=== PATIENT | female | born 1965 | race Hispanic/Latino ===

== ENCOUNTER 2017-01-02 20:33 | Emergency (ER) | payer MEDICAID ==
[2017-01-02 20:33] VITALS: BMI 40.1
[2017-01-02 20:53] VITALS: BP 158/93
--- NOTE | 2017-01-02 21:41 | ED PDOC ---
Arrival/HPI <Eros Solorio - Last Filed: 01/03/17 01:03> - General Historian: Patient <AdelasaraSarah - Last Filed: 01/03/17 04:08> - General Chief Complaint: Lower Extremity Problem/Injury Time Seen by Provider: 01/02/17 20:59 - History of Present Illness Narrative History of Present Illness (Text): 01/02/17 21:47 Patient is a 51 y/o with pmh of DVT, HTN, DM, HLD, diabetic neuropathy, cocaine abuse, medication non compliance sent from PMD's office secondary to lower extremities edema. Patient states she has the edema for 3 days, with pain when she ambulates and erythema. Patient denies sob, cp, denies fever, chills, n.v.d. Patient reports she doesn't take nay medications at home, only takes it when she's in the hospital. Patient uses crack cocaine and last used it today. patient fell about a month ago, and fractured her wrist, is been following up with an orthopedic at [facility]. + chronic cough. Denies traveling history. Reports she's mostly active, and doesn't seat around. PMD: Gustavo Chinchilla 01/02/17 21:49 01/02/17 21:54 01/02/17 22:24 (Sarah Bains) Past Medical History - Provider Review Nursing Documentation Reviewed: Yes <Eros Solorio - Last Filed: 01/03/17 01:03> - Provider Review Nursing Documentation Reviewed: Yes - Travel History Have you recently traveled outside [place] w/in the past 3 mons?: No - Infectious Disease Hx of Infectious Diseases: None - Tetanus Immunization Tetanus Immunization: Unknown - Reproductive Menopause: Yes - Cardiac Hx Hypertension: Yes - Pulmonary Hx Asthma: Yes Hx Chronic Obstructive Pulmonary Disease (COPD): Yes - Neurological Hx Neurological Disorder: No - HEENT Hx HEENT Disorder: Yes Hx Deafness: Yes - Renal Hx Renal Disorder: No - Endocrine/Metabolic Hx Endocrine Disorders: Yes Hx Diabetes Mellitus Type 2: Yes - Hematological/Oncological Hx Blood Disorders: No - Integumentary Hx Dermatological Disorder: No - Musculoskeletal/Rheumatological Hx Arthritis: Yes - Gastrointestinal Hx Diverticulitis: Yes - Genitourinary/Gynecological Hx Genitourinary Disorders: Yes Hx Urinary Tract Infection: Yes Other/Comment: PROLASE OF UTERUS - Psychiatric Hx Anxiety: Yes Hx Bipolar Disorder: Yes Hx Substance Use: Yes - Surgical History Hx Tonsillectomy: Yes - Anesthesia Hx Anesthesia: Yes - Suicidal Assessment Feels Threatened In Home Enviroment: No <Sarah Bains - Last Filed: 01/03/17 04:08> Family/Social History - Physician Review Nursing Documentation Reviewed: Yes Family/Social History: No Known Family HX <Eros Solorio - Last Filed: 01/03/17 01:03> Smoking Status: Light Smoker < 10 Cigarettes Daily Hx Alcohol Use: No Hx Substance Use: Yes Substance used: Crack <Sarah Bains - Last Filed: 01/03/17 04:08> Allergies/Home Meds <Eros Solorio - Last Filed: 01/03/17 01:03> <Sarah Bains - Last Filed: 01/03/17 04:08> Allergies/Adverse Reactions: Allergies Benzodiazepines Allergy (Severe, Verified 01/02/17 20:47) RASH diphenhydramine HCl [From Benadryl] Allergy (Severe, Verified 01/02/17 20:47) RASH ciprofloxacin [From Cipro] Allergy (Verified 01/02/17 20:47) RASH ciprofloxacin HCl [From Cipro] Allergy (Verified 01/02/17 20:47) RASH trazadone Allergy (Severe, Uncoded 01/02/17 20:47) ANAPHYLAXIS Review of Systems - Review of Systems Constitutional: Normal Eyes: Normal ENT: Normal Respiratory: Cough Cardiovascular: Normal Gastrointestinal: Normal. absent: Abdominal Pain, Nausea, Vomiting Genitourinary Female: Normal Musculoskeletal: Normal Skin: Rash, Cellulitis (lower extremities. ) Neurological: Normal Endocrine: Normal Hemo/Lymphatic: Normal Psychiatric: Normal <Sarah Bains - Last Filed: 01/03/17 04:08> Physical Exam Temperature: Afebrile Blood Pressure: Hypertensive Pulse: Regular Respiratory Rate: Normal Appearance: Positive for: Non-Toxic, Comfortable, Unkept Pain Distress: None Mental Status: Positive for: Alert and Oriented X 3 - Systems Exam Head: Present: Atraumatic, Normocephalic. No: Tenderness Pupils: Present: PERRL Extroacular Muscles: Present: EOMI Conjunctiva: Present: Normal Mouth: Present: Dry Neck: Present: Normal Range of Motion Respiratory/Chest: Present: Clear to Auscultation. No: Good Air Exchange, Respiratory Distress, Accessory Muscle Use, Wheezes, Decreased Breath Sounds Cardiovascular: Present: Regular Rate and Rhythm, Normal S1, S2. No: Murmurs Abdomen: Present: Normal Bowel Sounds, Other (obese abomen.). No: Tenderness, Distention Upper Extremity: Present: Other (with casting on the right.) Lower Extremity: Present: Edema, CALF TENDERNESS, Tenderness, Swelling, Erythema (Blanching.), Capillary Refill < 2 s, Other (Left LE with +4 pitting edema, Righ LE with +2 LE. Warm to touch. ) Neurological: Present: GCS=15, Speech Normal Skin: Present: Warm, Dry, Rashes, Abrasion Psychiatric: Present: Alert, Oriented x 3, Normal Insight <Sarah Bains - Last Filed: 01/03/17 04:08> Vital Signs Temp Pulse Resp BP Pulse Ox 01/03/17 00:19 97.8 F 76 16 98 01/02/17 20:48 98.3 F 98 H 18 158/93 H 95 Medical Decision Making - Lab Interpretations I have reviewed the lab results: Yes <Eros Solorio - Last Filed: 01/03/17 01:03> Re-evaluation Time: 00:05 Reassessment Condition: Re-examined, Unchanged <Sarah Bains - Last Filed: 01/03/17 04:08> ED Course and Treatment: Pt seen and evaluated with spanish medical interpreter. Pt, whose past medical history includes COPD, diabetes, hypertension, hyperlipidemia, DVT, substance abuse, and medicine non-compliance, presented for bilateral lower extremity edema for 3 days, with associated pain when ambulating and erythema. Patient was seen by her PMD for similar complaint today and advised to come to the Emergency. Aware and agree with HPI, clinical findings, plan, and management. Plan: -- US Duplex Lower Extremities -- Labs, blood culture -- Urinalysis -- Reassess and disposition (Eros Solorio) 01/03/17 00:08 Lower extremities doppler with no DVTs. 01/03/17 00:08 (Sarah Bains) - Lab Interpretations Lab Results: 01/02/17 22:10 01/02/17 22:10 Lab Results 01/02/17 22:10: Sodium 138, Potassium 3.8, Chloride 101, Carbon Dioxide 31, Anion Gap 10, BUN 12, Creatinine 0.7, Est GFR ( Amer) > 60, Est GFR (Non- Af Amer) > 60, Random Glucose 220 H, Calcium 9.3, Total Bilirubin 0.3, AST 18, ALT 36, Alkaline Phosphatase 145 H, Total Protein 7.1, Albumin 3.8, Globulin 3.3 , Albumin/Globulin Ratio 1.2 01/02/17 22:10: Urine Color Yellow, Urine Appearance Sl cloudy, Urine pH 6.0, Ur Specific [place] >= 1.030, Urine Protein 100 H, Urine Glucose (UA) Negative, Urine Ketones Negative, Urine Blood Large H, Urine Nitrate Negative, Urine Bilirubin Negative, Urine Urobilinogen 0.2, Ur Leukocyte Esterase Negative, Urine RBC 1 - 3, Urine WBC 1 - 3, Ur Epithelial Cells 6 - 8, Urine Bacteria Many 01/02/17 22:10: WBC 11.6 H D, RBC 4.48, Hgb 13.9, Hct 41.3, MCV 92.2, MCH 31.0, MCHC 33.7, RDW 13.5, Plt Count 340, MPV 10.1, Gran % 60.3, Lymph % (Auto) 30.7, [place] % (Auto) 6.7 H, Eos % (Auto) 1.9, Baso % (Auto) 0.4, Gran # 6.98 H, Lymph # 3.6 H, [place] # 0.8 H, Eos # 0.2, Baso # 0.05 - RAD Interpretation Radiology Orders: 01/02/17 21:45 DUPLEX LOWER EXTRM VEIN BILAT [US] Stat - Medication Orders Current Medication Orders: Discontinued Medications Acetaminophen (Tylenol 325mg Tab) 650 mg PO STAT STA Stop: 01/02/17 22:35 Last Admin: 01/02/17 22:42 Dose: Not Given Non-Admin Reason: Patient Refused Pregabalin (Lyrica) 100 mg PO BID [facility] Last Admin: 01/03/17 00:43 Dose: 100 mg Trimethoprim/Sulfamethoxazole (Bactrim Ds Tab) 1 tab PO ONCE ONE PRN Reason: Protocol Stop: 01/03/17 00:33 Last Admin: 01/03/17 00:44 Dose: 1 tab Disposition/Present on Arrival <CoccEros bennett - Last Filed: 01/03/17 01:03> - Present on Arrival Any Indicators Present on Arrival: No History of DVT/PE: No History of Uncontrolled Diabetes: Yes Urinary Catheter: No History of Decub. Ulcer: No History Surgical Site Infection Following: None - Disposition Have Diagnosis and Disposition been Completed?: Yes Disposition Time: 00:10 <Sarah Bains - Last Filed: 01/03/17 04:08> - Disposition Diagnosis: Cellulitis of leg, right, Leg edema Disposition: HOME/ ROUTINE Condition: FAIR Discharge Instructions (ExitCare): Cellulitis (ED) Additional Instructions: Please take the antibiotic as prescribed, Take Tylenol as need for pain Follow up with your primary care doctor. Go tot he nearest emergency room if you experience chest pain, sob, fever or chills. Prescriptions: Sulfamethoxazole/Trimethoprim [Bactrim DS 800 mg-160 mg] 1 tab PO BID #14 tab Referrals: [facility] at [facility] – [place] [Outside] - Follow up with primary
[2017-01-02 22:29] LABS: ADD MANUAL DIFF? NO
[2017-01-02 22:44] LABS: ALB/GLOB RATIO 1.2 (1.1-1.8); ALKALINE PHOSPHATASE 145 U/L (38-133); ALT/SGPT 36 U/L (7-56); AST/SGOT 18 U/L (15-39); BILIRUBIN,TOTAL 0.3 mg/dL (0.2-1.3); BLOOD UREA NITROGEN 12 mg/dL (7-21); CALCIUM 9.3 mg/dL (8.4-10.5); CARBON DIOXIDE 31 mmol/L (21-33); CHLORIDE 101 mmol/L (95-110); GFR AFRICAN-AMERICAN > 60; GLUCOSE,RANDOM 220 mg/dL (70-110); POTASSIUM 3.8 mmol/L (3.6-5.0); SODIUM 138 mmol/L (132-148); TOTAL PROTEIN 7.1 g/dL (5.8-8.3)
[2017-01-02 23:04] LABS: URINE BILIRUBIN NEGATIVE (NEGATIVE); URINE BLOOD LARGE (NEGATIVE); URINE GLUCOSE (UA) NEGATIVE (NEGATIVE); URINE KETONE NEGATIVE (NEGATIVE); URINE LEUKOCYTE ESTERASE NEGATIVE Leu/uL (NEGATIVE); URINE PROTEIN 100 mg/dL (<30 mg/dL); URINE UROBILINOGEN 0.2 E.U./dL (<1 E.U./dL)
[2017-01-02 23:05] LABS: BASO # 0.05 K/mm3 (0.0-2.0); BASO % 0.4 % (0.0-3.0); EOS # 0.2 (0.0-0.7); EOS % 1.9 % (1.5-5.0); GRAN # 6.98 (1.4-6.5); GRAN % 60.3 % (50.0-68.0); HEMATOCRIT 41.3 % (36.0-48.0); LYMPH # 3.6 (1.2-3.4); LYMPH % 30.7 % (22.0-35.0); MEAN CELL VOLUME 92.2 fL (80.0-105.0); MEAN CORPUSCULAR HGB CONC 33.7 g/dl (31.0-37.0); MEAN PLATELET VOLUME 10.1 fl (7.0-11.0); MONO # 0.8 (0.1-0.6); MONO % 6.7 % (1.0-6.0); PLATELET COUNT 340 10^3/uL (120.0-450.0); RED CELL DISTRIBUTION WIDTH 13.5 % (11.5-14.5); WHITE BLOOD COUNT 11.6 10^3/ul (4.5-11.0)
[2017-01-02 23:13] LABS: URINE APPEARANCE SL CLOUDY (CLEAR); URINE COLOR YELLOW (YELLOW)
[2017-01-02 23:44] LABS: URINE BACTERIA MANY (NEG)
[2017-01-03 00:20] VITALS: PULSE 76; RESP 16; TEMP 97.8; O2SAT 98
[2017-01-03] MEDS ORDERED: Tmp-Smz 800 mg-160 mg DS Tab PO ONE (00:32)
--- NOTE | 2017-01-03 13:34 | US ---
HISTORY: Leg pain and swelling. Evaluate for DVT PHYSICIAN(S): Darvin Chinchilla MD. TECHNIQUE: Duplex sonography and color-flow Doppler with graded compression were used to evaluate the deep venous systems of both lower extremities. The exam is limited by body habitus and edema. FINDINGS: The visualized deep venous systems of both lower extremities are sonographically normal and compressible. Normal wave forms and augmentation are seen. There is no sonographic evidence for deep venous thrombosis in the visualized segments of both lower extremities. IMPRESSION: No sonographic evidence for deep venous thrombosis in the visualized segments of both lower extremities.
== END 2017-01-03 01:06 | disposition home or self-care (01) ==
LOC: ED 20:33
DX: L03.115 Cellulitis of right lower limb (principal); R60.0 Localized edema

== ENCOUNTER 2017-09-29 13:52 | Emergency (ER) | payer MEDICAID ==
[2017-09-29 13:53] VITALS: BMI 40.1
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
[2017-09-29 14:22] VITALS: RESP 19
[2017-09-29] MEDS ORDERED: Lidocaine 5% Patch TD STA (14:57)
[2017-09-29 15:16] LABS: BASO # 0.05 K/mm3 (0.0-2.0); BASO % 0.4 % (0.0-3.0); EOS # 0.2 (0.0-0.7); EOS % 1.3 % (1.5-5.0); GRAN # 7.48 (1.4-6.5); GRAN % 63.5 % (50.0-68.0); HEMOGLOBIN 16.4 g/dL (12.0-16.0); LYMPH # 3.3 (1.2-3.4); LYMPH % 28.3 % (22.0-35.0); MEAN CELL VOLUME 94.8 fl (80.0-105.0); MEAN CORPUSCULAR HEMOGLOBIN 31.3 pg (25.0-35.0); MEAN PLATELET VOLUME 10.2 fl (7.0-11.0); MONO # 0.8 (0.1-0.6); MONO % 6.5 % (1.0-6.0); RBC 5.24 10^6/uL (3.5-6.1); RED CELL DISTRIBUTION WIDTH 13.9 % (11.5-14.5); WHITE BLOOD COUNT 11.8 10^3/ul (4.5-11.0)
[2017-09-29 15:20] LABS: INR 1.01 (0.93-1.08); PARTIAL THROMBOPLASTIN TIME 36.5 Seconds (25.1-36.5); PROTHROMBIN TIME 11.5 SECONDS (9.4-12.5)
[2017-09-29 15:28] LABS: ALB/GLOB RATIO 1.1 (1.1-1.8); ALBUMIN 4.2 g/dL (3.0-4.8); ALT/SGPT 42 U/L (7-56); AST/SGOT 27 U/L (14-36); BLOOD UREA NITROGEN 10 mg/dL (7-21); CALCIUM 9.2 mg/dL (8.4-10.5); GFR AFRICAN-AMERICAN > 60; GFR NON-AFRICAN AMERICAN > 60
[2017-09-29 16:07] LABS: URINE BILIRUBIN NEGATIVE (NEGATIVE); URINE BLOOD LARGE (NEGATIVE); URINE GLUCOSE (UA) NEGATIVE (NEGATIVE); URINE LEUKOCYTE ESTERASE NEGATIVE Leu/uL (NEGATIVE); URINE PROTEIN TRACE mg/dL (<30 mg/dL); URINE UROBILINOGEN 0.2 E.U./dL (<1 E.U./dL)
[2017-09-29 16:08] LABS: URINE APPEARANCE SL CLOUDY (CLEAR); URINE COLOR YELLOW (YELLOW)
[2017-09-29 16:24] LABS: URINE BACTERIA MOD (NEG); URINE EPITHELIAL CELLS MANY /hpf (0-5)
--- NOTE | 2017-09-29 16:29 | RAD ---
PROCEDURE: Radiographs of the right great toe. TECHNIQUE:: AP radiograph of the right foot, with oblique and lateral view of the right great toe. COMPARISON: None. FINDINGS: BONES: Normal. No fracture. JOINTS: Normal. SOFT TISSUES: Soft tissue swelling medial aspect of the 1st digit with small ulcer. No evidence of radiopaque foreign body. OTHER FINDINGS: None. IMPRESSION: Soft tissue swelling without acute articular or osseous abnormality.
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
[2017-09-29] MEDS ORDERED: cefTRIAXone 1 gm 1 GM/100 ML BAG IVPB STA (16:34)
[2017-09-29] MEDS ORDERED: Potassium Chloride 20 mEq ER Tab PO STA (17:24)
[2017-09-29 17:53] VITALS: BP 160/89; PULSE 78; TEMP 98; O2SAT 98
== END 2017-09-29 17:50 | disposition home or self-care (01) ==
LOC: ED 13:52
DX: M54.9 Dorsalgia, unspecified (principal); S91.301A Unspecified open wound, right foot, initial encounter; W19.XXXA Unspecified fall, initial encounter; I10 Essential (primary) hypertension; E11.9 Type 2 diabetes mellitus without complications; J44.9 Chronic obstructive pulmonary disease, unspecified; F17.210 Nicotine dependence, cigarettes, uncomplicated
CPT/HCPCS: 72110; 73660; 80053; 81001; 85025; 85610; 85730; 87040; 87070; 87086; 96374; 99284; J1885

== ENCOUNTER 2018-10-06 21:46 | Emergency (ER) | payer MEDICAID | END 2018-10-07 00:15 | disposition home or self-care (01) | LOC: ED 10-07 00:15 ==

== ENCOUNTER 2018-10-08 01:05 | Emergency (ER) | payer MEDICAID ==
[2018-10-08 01:18] VITALS: PULSE 85; RESP 18; TEMP 97.7
[2018-10-08 01:21] VITALS: BMI 37.3
--- NOTE | 2018-10-08 01:59 | ED PDOC ---
Arrival/HPI - General Chief Complaint: Medical Clearance Time Seen by Provider: 10/08/18 01:22 - History of Present Illness Narrative History of Present Illness (Text): Patient reports pain on L leg, where she has an ankle cast in place. Also reports painful ulcer to R great toe, which is chronic. She was seen here yesterday for the same symptoms, podiatry was consulted and advised patient to go to their clinic at [facility] today between 8:30-10am. Patient states she went there but not during those hours, and was told she had to come back. She then presented back to this ED for continued pain. States that she has been taking tramadol for the pain but that she ran out of the medication. Past Medical History - Provider Review Nursing Documentation Reviewed: Yes JAQUELINE Report Viewed: Yes - Travel History Have you recently traveled outside [place] w/in the past 3 mons?: No - Infectious Disease Hx of Infectious Diseases: None - Tetanus Immunization Tetanus Immunization: Unknown - Cardiac Hx Hypertension: Yes - Pulmonary Hx Asthma: Yes Hx Chronic Obstructive Pulmonary Disease (COPD): Yes - Neurological Hx Neurological Disorder: No - HEENT Hx HEENT Disorder: Yes Hx Deafness: Yes - Renal Hx Renal Disorder: No - Endocrine/Metabolic Hx Endocrine Disorders: Yes Hx Diabetes Mellitus Type 2: Yes - Hematological/Oncological Hx Blood Disorders: No - Integumentary Hx Dermatological Disorder: No - Musculoskeletal/Rheumatological Hx Arthritis: Yes - Gastrointestinal Hx Diverticulitis: Yes - Genitourinary/Gynecological Hx Genitourinary Disorders: Yes Hx Urinary Tract Infection: Yes Other/Comment: PROLASE OF UTERUS - Psychiatric Hx Anxiety: Yes Hx Bipolar Disorder: Yes Hx Substance Use: Yes (crack cocaine last used) - Surgical History Hx Cholecystectomy: Yes Hx Tonsillectomy: Yes - Anesthesia Hx Anesthesia: Yes Hx Anesthesia Reactions: No - Suicidal Assessment Feels Threatened In Home Enviroment: No Family/Social History - Physician Review Nursing Documentation Reviewed: Yes Family/Social History: Unknown Family HX Smoking Status: Heavy Smoker > 10 Cigarettes Daily Hx Alcohol Use: No Hx Substance Use: Yes (crack cocaine last used) Substance used: Crack Allergies/Home Meds Allergies/Adverse Reactions: Allergies Benzodiazepines Allergy (Severe, Verified 10/04/18 19:50) RASH diphenhydramine HCl [From Benadryl] Allergy (Severe, Verified 10/04/18 19:50) RASH ciprofloxacin [From Cipro] Allergy (Verified 10/04/18 19:50) RASH ciprofloxacin HCl [From Cipro] Allergy (Verified 10/04/18 19:50) RASH trazadone Allergy (Severe, Uncoded 10/04/18 19:50) ANAPHYLAXIS Review of Systems - Review of Systems Constitutional: Normal Respiratory: Normal Cardiovascular: Normal Gastrointestinal: Normal Musculoskeletal: Other (R great toe pain, L foot pain) Skin: Other (R great toe ulcer) Neurological: Normal Psychiatric: Anxiety Physical Exam Vital Signs Reviewed: Yes Vital Signs Temp Pulse Resp BP Pulse Ox 10/08/18 01:16 97.7 F 85 18 102/50 L 98 Temperature: Afebrile Blood Pressure: Normal Pulse: Regular Respiratory Rate: Normal Appearance: Positive for: Unkept Mental Status: Positive for: Alert and Oriented X 3 - Systems Exam Head: Present: Atraumatic, Normocephalic Conjunctiva: Present: Normal Mouth: Present: Moist Mucous Membranes Respiratory/Chest: Present: Clear to Auscultation Cardiovascular: Present: Regular Rate and Rhythm Abdomen: No: Tenderness Upper Extremity: Present: Normal Inspection Lower Extremity: Present: Other (R great toe with [id number] ulcer to plantar surface, with no purulent discharge or surrounding erythema. LLE with ankle cast in place. Normal capillary refill to toes.) Skin: Present: Warm, Dry Psychiatric: Present: Alert, Oriented x 3 Medical Decision Making ED Course and Treatment: Patient advised to go back to [facility] podiatry clinic. Tramadol 50mg PO given, and Rx written. - Medication Orders Current Medication Orders: Discontinued Medications Tramadol HCl (Ultram) 50 mg PO STAT STA Stop: 10/08/18 01:43 Last Admin: 10/08/18 01:54 Dose: 50 mg [facility] Pain Assessment Document 10/08/18 01:54 AD (Rec: 10/08/18 01:[address] [id number]) Pain Reassessment Is this a pain reassessment? No Pain Scale Used Protocol: PSCALES Pain Scale Used Numeric Description Intensity of Pain at present 7 Pain Behavior Facial Grimacing Disposition/Present on Arrival - Present on Arrival Any Indicators Present on Arrival: Yes History of DVT/PE: No History of Uncontrolled Diabetes: Yes Urinary Catheter: No History of Decub. Ulcer: No History Surgical Site Infection Following: None - Disposition Have Diagnosis and Disposition been Completed?: Yes Diagnosis: Left foot pain, Cast discomfort, Chronic ulcer of right great toe Disposition: HOME/ ROUTINE Disposition Time: 02:26 Condition: STABLE Discharge Instructions (ExitCare): Cast Care, Diabetic Foot Ulcer (DC) Additional Instructions: KATELYN PATIÑO, thank you for letting us take care of you today. Your provider was Nikky Holley MD and you were treated for REMOVE LEG CAST. The emergency medical care you received today was directed at your acute symptoms. If you were prescribed any medication, please fill it and take as directed. It may take several days for your symptoms to resolve. Return to the Emergency Department if your symptoms worsen, do not improve, or if you have any other problems. Please contact your doctor or call one of the physicians/clinics you have been referred to that are listed on the Patient Visit Information form that is included in your discharge packet. Bring any paperwork you were given at discharge with you along with any medications you are taking to your follow up visit. Our treatment cannot replace ongoing medical care by a primary care provider outside of the emergency department. Thank you for allowing the [facility] team to be part of your care today. If you had an X-Ray or CT scan: A Radiologist will review the ED reading if any change in treatment is needed we will contact you. If you had a blood, urine, or wound culture: It will take several days for the results, if any change in treatment is needed we will contact you. If you had an STI test: It will take 48 hours for the results. Please call after 1 week if you have not heard back. Prescriptions: traMADol [Ultram] 50 mg PO TID PRN #9 tab PRN Reason: Pain, Severe (8-10) Forms: [employer] (Malay)
[2018-10-08 03:16] VITALS: BP 105/72; O2SAT 100
== END 2018-10-08 02:26 | disposition home or self-care (01) ==
LOC: ED 01:05
DX: L97.519 Non-pressure chronic ulcer of other part of right foot with unspecified severity (principal); M79.672 Pain in left foot